=== PATIENT | female | born 1940 | race Caucasian/White ===

== ENCOUNTER → 2019-12-18 | Outpatient (CLI) | payer MEDICARE | END | disposition home or self-care (01) | LOC: LABWHC1 14:50 | PROVIDERS: ATTEND Ophthalmology | DX: Z20.828 Contact with and (suspected) exposure to other viral communicable diseases (principal) | CPT/HCPCS: U0003; C9803 ==

== ENCOUNTER → 2020-01-01 | Outpatient (CLI) | payer MEDICARE | END | disposition home or self-care (01) | LOC: LABWHC1 16:10 | PROVIDERS: ATTEND Ophthalmology | DX: Z20.828 Contact with and (suspected) exposure to other viral communicable diseases (principal) | CPT/HCPCS: U0003; C9803 ==

== ENCOUNTER → 2022-10-18 | Outpatient (CLI) | payer MEDICARE ==
[2022-10-18 13:56] LABS: Prothrombin Time 10.3 sec (9.0-12.0)
[2022-10-18 13:57] LABS: Appearance,Urine Clear (Clear); Bilirubin,Urine Negative (Negative); Blood,Urine Negative (Negative); Color,Urine Light Yellow; Glucose,Urine (UA) Negative (Negative); Ketones,Urine Negative (Negative); Leukocyte Esterase,Urine Negative (Negative); Nitrite,Urine Negative (Negative); Protein,Urine Negative (Negative); Specific Gravity,Urine 1.006 (1.001-1.035); Urobilinogen,Urine <2.0 mg/dL (<2.0)
[2022-10-18 14:07] LABS: Partial Thromboplastin Time 21.7 sec (22.0-30.0)
[2022-10-19 02:14] LABS: HCT 41.7 % (37.2-46.3); HGB 13.5 d/dL (12.0-15.0); MCH 31.3 pg (27.0-32.0); MCHC 32.4 d/dL (32.0-37.0); MCV 96.5 FL (80.0-97.0); Mean Platelet Volume 10.9 FL (9.5-12.2); NRBC Per 100 WBC 0 X 10*3/uL (0.00-0.01); Platelet Count 211 X 10*3/uL (140-440); RBC 4.32 X 10*6/uL (4.10-5.20); RDW 12.5 % (11.5-14.5); WBC 6.24 X 10*3/uL (4.50-10.00)
[2022-10-19 02:51] LABS: ALT 14 U/L (8-44); AST 23 U/L (13-35); Albumin 4.4 d/dL (3.8-4.9); Albumin/Globulin Ratio 1.76 Ratio (1.60-3.17); Alkaline Phosphatase 88 U/L (41-126); BUN/Creat Ratio 22.11 Ratio (12.00-20.00); Blood Urea Nitrogen 19.9 mg/dL (9.0-27.0); Calcium 10.2 mg/dL (8.7-10.3); Carbon Dioxide 23.6 mmol/L (21.6-31.8); Chloride 104 mmol/L (96-109); Globulin 2.5 d/dL (1.6-3.3); Glucose 98 mg/dL (70-110); Potassium 4.4 mmol/L (3.5-5.5); Sodium 140 mmol/L (135-145); Total Bilirubin 0.4 mg/dL (0.3-1.2); Total Protein 6.9 d/dL (6.2-8.2)
== END | disposition home or self-care (01) ==
LOC: LABPAT 11:30
PROVIDERS: ATTEND Orthopaedic Surgery
DX: Z01.818 Encounter for other preprocedural examination (principal); I51.0 Cardiac septal defect, acquired; M19.011 Primary osteoarthritis, right shoulder; R94.31 Abnormal electrocardiogram [ECG] [EKG]
CPT/HCPCS: 80053; 81003; 85027; 85610; 85730; 87070; 93005

== ENCOUNTER 2022-11-14 11:39 | Inpatient (IN) | payer MEDICARE ==
[2022-11-13 08:55] VITALS: BMI 24.3
[~2022-11-14 11:39] MED LIST: ACETAMINOPHEN TAB 500 MG TAB PO PRN; GABAPENTIN 300 MG CAP PO PRN; MELOXICAM 7.5 MG TAB PO PRN; TRANEXAMIC 1,000 MG/100ML-NACL 1,000 MG in SALINE 1 100ML.BAG IVPB PRN
[2022-11-14] MEDS ORDERED: fentaNYL (PF) 50 MCG/ML 2 ML AMP IV PRN (12:00)
[2022-11-14] MEDS ORDERED: ONDANSETRON 4 MG/2 ML VIAL IVP ONE (12:00)
[2022-11-14] MEDS ORDERED: HYDROmorphone 0.5 MG/0.5 ML SYRINGE IVP PRN ×3 (12:00→12:51)
[2022-11-14] MEDS ORDERED: LACTATED RINGERS 1,000 ML IV SCH (12:00)
[2022-11-14] MEDS ORDERED: ONDANSETRON 4 MG/2 ML VIAL ONE (12:05)
[2022-11-14] MEDS ORDERED: HYDROcodone/APAP 5-325MG 1 EACH TAB PO PRN ×2 (12:51)
[2022-11-14] MEDS ORDERED: SENNOSIDES-DOCUSATE SODIUM 1 EACH TAB PO PRN (12:51)
[2022-11-14] MEDS ORDERED: MIDAZOLAM 2 MG/2 ML VIAL IVP ONE (13:04)
[2022-11-14] MEDS ORDERED: DEXAMETHASONE SOD PHOSPHATE 4 MG/ML 1 ML VIAL IVP ONE (13:05)
[2022-11-14] MEDS ORDERED: MIDAZOLAM 2 MG/2 ML VIAL ONE (13:17)
[2022-11-14] MEDS ORDERED: PHENYLEPHRINE-0.9% NACL SYG 1,000 MCG/10 ML SYRINGE ONE (13:17)
[2022-11-14] MEDS ORDERED: ePHEDrine 50 MG/ML 1 ML VIAL ONE (13:17)
[2022-11-14] MEDS ORDERED: TRANEXAMIC 1,000 MG/100ML-NACL PREMIX BAG ONE (13:17)
[2022-11-14] MEDS ORDERED: fentaNYL (PF) 50 MCG/ML 2 ML AMP ONE (13:17)
[2022-11-14] MEDS ORDERED: PROPOFOL 10 MG/ML 20 ML VIAL IV ONE (13:17)
[2022-11-14] MEDS ORDERED: LIDOCAINE 2% INJ 20 MG/ML (2 ML VIAL) ONE (13:17)
[2022-11-14] MEDS ORDERED: ROCURONIUM 10 MG/ML (5 ML VIAL) IV ONE (13:17)
[2022-11-14] MEDS ORDERED: ROPIVACAINE 5 MG/ML 30 ML VIAL ONE (13:17)
[2022-11-14] MEDS ORDERED: ceFAZolin 1,000 MG in SODIUM CHLORIDE 0.9% 1,000 ML IRRIGATION ONE (13:17)
--- NOTE | 2022-11-14 13:19 | P.ANPRN ---
Procedure Note - Anesthesia - Nerve Block Performed Right Interscalene Time Out Performed: Yes (13:04) Date of Procedure: 11/14/22 Procedure Start Time: : Procedure Stop Time: : Location of Patient: PreOp Indication: Acute Post-Operative Pain, Requested by Surgeon (DR Lj Kearns) Sedation Type: Sedate with meaningful contact maintained Preparation: Sterile Prep Position: Supine Catheter: None Needle Types: Pajunk Needle Gauge: 21 Ultrasound used to visualize needle placement: Yes Ultrasound used to observe medication spread: Yes Injectate: 0.5% Ropivacaine (see comment for volume) (20cc) Blood Aspirated: No Pain Paresthesia on Injection Noted: No Resistance on Injection: Normal Image Stored and Saved: Yes Events: Uneventful and Well Tolerated
--- NOTE | 2022-11-14 14:30 | P.OP ---
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 Biomet comprehensive reverse shoulder system, humeral bearing, 36 mm, standard Biomet comprehensive reverse shoulder system, mini humeral tray, 40 mm, +0, standard Biomet comprehensive reverse shoulder, Glenosphere mini baseplate, 25 mm Biomet comprehensive reverse shoulder, central screw, 6.5 mm x 25 mm Biomet comprehensive reverse shoulder, fixed locking screw, 4.75 x 20 mm, 15 mm, 15 mm, 20 mm. Biomet comprehensive reverse shoulder glenosphere, 36 mm, standard All components were press-fit. Articulation is metal on polyethylene.Articulation is metal on polyethylene. Anesthesia: MELLY Surgeon: Lj Kearns Television [employer] Teacher #1: Ingrid Chapman Estimated Blood Loss (ml): 50 Pathology: none sent Condition: stable Disposition: PACU Indications for Procedure: This is a patient that presented to my office with severe pain in the shoulder. X-rays demonstrated severe osteoarthritis of the glenohumeral joint of her shoulder. After failure of conservative treatment, we discussed the surgical and nonsurgical treatment options at length. The patient wishes to proceed with a reverse total shoulder arthroplasty. Patient is aware of the complications of the procedure which include but are not limited to infection, hardware failure, persistent pain, dislocation, and nerve injury. Informed consent was obtained. Operative Findings: The operative findings are consistent with severe osteoarthritis of the right glenohumeral joint with rotator cuff insufficiency Description of Procedure: The patient was seen in the preoperative area, consent was reviewed, and operative site was marked with a skin marker. Patient was then brought to the operating room and given preoperative antibiotics intravenously. Patient was also given 1 g of Tranexamic acid intravenously. A general anesthetic was administered by the anesthesia department. A Lazo catheter was placed by the nursing staff. The patient was then placed in a beachchair position with the bony prominences well-padded and the head secured. The shoulder was then prepped and draped in the usual sterile fashion. A universal timeout was then performed, which confirmed the patient's name, surgical site, ALLERGIES, and consent. A standard deltopectoral approach was performed. The skin and subcutaneous tissue was sharply dissected down to the deltoid fascia. The cephalic vein was then identified and retracted medially. The deltopectoral interval was then utilized to expose the subscapularis tendon. A retractor was then placed under the coracobrachialis tendon retracted medially, and the deltoid. The axillary nerve is palpated and protected throughout the procedure. The subscapularis tendon was then released and retracted medially. The humeral head was then exposed easily. The rotator cuff tendon was found to be completely torn and retracted. After the humeral head was exposed, osteophytes were removed with a Ronguer. Next the humeral stem was prepared. A starter reamer was then placed through the humeral head along the axis of the humeral shaft just lateral to the articular surface and just medial to the rotator cuff attachment. Sequential reaming was performed to the appropriate size reamer was inserted to the #between the 3 and 4 on the reamer. Next the intramedullary resection guide was placed on the reamer shaft. It was placed to the appropriate resection depth and angle of 30 of retroversion. Resection guide block was then secured with Steinmann pins. The proximal humerus was then resected. The block was then removed and the humerus was then broached sequentially to the same size as the reamer. After the broaches fully seated, the broach handle was removed and a broach cover was placed protect the humerus while the glenoid was prepared. Next attention was directed to the glenoid. The appropriate retractors were placed around the glenoid and any remaining soft tissues was removed from around the glenoid. After the glenoid was adequately exposed, the threaded glenoid guide was placed onto the glenoid and a 3.2 mm Steinmann pin was inserted in the glenoid at the desired angle and position, ensuring the pin engaged medial cortical wall. Next, the cannulated baseplate reamer was placed over the top of the Steinmann pin. The glenoid was then reamed to the appropriate depth. The glenoid reamer was then removed, leaving the Steinmann pin. The glenoid Yannick plate implant was placed on the end of the cannulated baseplate impactor. The baseplate was then impacted fully into the glenoid. Next the 6.5 mm central screw was then placed which afforded excellent fixation. The 4 peripheral locking screws were then drilled measured and placed. Next the appropriate glenosphere was opened and impacted into the glenoid baseplate. Attention was then redirected to the humerus. Next a trial humeral tray was placed in the shoulder was reduced. Shoulder was taken through a full range of motion and found to be stable. The shoulder was then gently dislocated, and the trial humerus and humeral tray were removed. The final humeral stem was impacted in the final humeral tray was impacted as well. Shoulder was then relocated. Again the shoulder was taken through a range of motion and found to have no instability. Shoulder was then irrigated with pulsatile lavage. The shoulder was then irrigated with Irrisept solution. A second dose of 1 g of Tranexamic acid was given. The subscapularis was then repaired with #1 Vicryl. The deltopectoral interval was then closed with #1 Vicryl as well. The subcutaneous tissues were closed with 2-0 Vicryl then Dermabond was placed on the skin. A sterile dressing was then applied, the patient was transported to the recovery room in an arm sling in stable condition. The assistant professor of archaeology SUMMER Velázquez was required due the complexity of surgery and the need for a skilled bilingual teacher assistant.
--- NOTE | 2022-11-14 19:42 | XR ---
EXAMINATION TYPE: XR shoulder limited RT DATE OF EXAM: 11/14/2022 COMPARISON: NONE HISTORY: 82-year-old female postoperative evaluation TECHNIQUE: Single AP view FINDINGS: Images show placement of reverse right shoulder arthroplasty. Alignment appears appropriate . Soft tissue air related to recent operation. Both glenoid and humeral stem components of the prosth esis appear well seated without periprosthetic fracture seen. IMPRESSION: Uncomplicated postoperative appearance of the reverse right total shoulder arthroplasty.
--- NOTE | 2022-11-14 22:05 | P.CONS ---
History of Present Illness - Reason for Consult Consult date: 11/14/22 Medical management Requesting physician: Lj Kearns - Chief Complaint Right shoulder surgery - History of Present Illness Pleasant 82-year-old patient who follows with Dr. Schwarz. Chronic stable medical conditions include atrial fibrillation, hard of hearing, osteomyelitis, seizure disorder, urinary incontinence. 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 Postprocedure no pain in the right shoulder right arm is numb. No nausea vomiting. Patient some family members at the bedside. No chest pain no shortness of breath. Review of systems: GEN.: None EYES: None HEENT: Decreased hearing NECK: None RESPIRATORY: None CARDIOVASCULAR: None GASTROINTESTINAL: None GENITOURINARY: None MUSCULOSKELETAL: Joint pains LYMPHATICS: None HEMATOLOGICAL: None PSYCHIATRY: None NEUROLOGICAL: None Past medical history to include: Atrial flutter ablation, hard of hearing, osteomyelitis, urinary incontinence, wears a pad, seizure disorder Social history: Nonsmoker. Alcohol rarely. Lives alone. Physical examination: VITAL SIGNS: 98, 62, 17, 123/60, 96% room air GENERAL: BMI 24.7, declining in bed, right arm in a sling. EYES: Pupils equal. Conjunctiva normal. HEENT: External appearance of nose and ears normal, oral cavity grossly normal. Decreased hearing NECK: JVD not raised; masses not palpable. HEART: First and second heart sounds are normal; no edema. LUNGS: Respiratory rate normal; clear to auscultation. ABDOMEN: Soft, nontender, liver spleen not palpable, no masses palpable. PSYCH: Alert and oriented x3; mood and affect normal. MUSCULOSKELETAL:No Clubbing/cyanosis;muscles-grossly intact. Right dominant a sling. Decreased sensation in the hand. Warm. OA NEUROLOGICAL: Cranial nerves grossly intact; no facial asymmetry, power and sensation grossly intact. LYMPHATICS: No lymph nodes palpable in the axilla and neck INVESTIGATIONS, reviewed in the clinical context: White count 6.2 hemoglobin 13.5 platelets 211 sodium 142 potassium 4.4 BUN 19.9 creatinine 0.9 Assessment and plan: -Severe osteoarthritis of the right glenohumeral joint with rotator cuff insufficiency. Reverse total shoulder arthroplasty done. Right arm in a sling. Currently no pain -Paroxysmal atrial fibrillation Eliquis to be resumed when okay with orthopedics. -Hard of hearing, patient says hearing aids -Primary osteoarthritis Pain medications as needed Care was discussed with the patient. Questions answered. Thank you Dr. Kearns Past Medical History Past Medical History: Atrial Fibrillation, Hearing Disorder / Deafness, Osteoarthritis (OA), Seizure Disorder Additional Past Medical History / Comment(s): Urinary incontinence, wears a pad. Bilateral hearing aid use. 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 States had seizures after both hip replacements which were 2 yrs apart, last surgery 2 yrs ago, no seizures since then and none in between hip replacements. History of Any Multi-Drug Resistant Organisms: None Reported Past Surgical History: Cholecystectomy, Hysterectomy, Joint Replacement, Orthopedic Surgery Additional Past Surgical History / Comment(s): "Fallen kidney surgery", bilateral hip replacements, bowel and bladder lift, cataract surgery, right knee meniscus repair. Past Anesthesia/Blood Transfusion Reactions: Postoperative Nausea & Vomiting (PONV) Additional Past Anesthesia/Blood Transfusion Reaction / Comm: Hx seizures after both hip replacements which started in the Recovery Room with both. Smoking Status: Never smoker - Past Family History Mother Family Medical History: Cancer Sister(s) Family Medical History: Deep Vein Thrombosis (DVT) Medications and Allergies Home Medications Medication Instructions Recorded Confirmed Type Amoxicillin (Unknown Dose) 1 tab PO DIRECTED PRN 11/13/22 11/14/22 History Apixaban [Eliquis] 5 mg PO BID 11/13/22 11/14/22 History Ascorbic Acid [Vitamin C] 1,000 mg PO DAILY 11/13/22 11/14/22 History Aspirin [Adult Low Dose Aspirin EC] 81 mg PO DAILY 11/13/22 11/14/22 History Calcium Carbonate [Calcium] 600 mg PO DAILY 11/13/22 11/14/22 History Castillo Pill 1 tab PO DAILY 11/13/22 11/14/22 History Cholecalciferol [Vitamin D3 (125 125 mcg PO DAILY 11/13/22 11/14/22 History Mcg = 5000 Iu)] Fesoterodine Fumarate 4 mg PO QAM 11/13/22 11/14/22 History [Fesoterodine Fumarate ER] Ibuprofen [Motrin] 400 mg PO DAILY 11/13/22 11/14/22 History Ibuprofen [Motrin] 600 mg PO DAILY 11/13/22 11/14/22 History Ibuprofen [Motrin] 800 mg PO BID 11/13/22 11/14/22 History Multivitamins, Thera [Multivitamin 1 tab PO DAILY 11/13/22 11/14/22 History (formulary)] [place]-3/Dha/Epa/Fish Oil [Fish Oil 1 each PO DAILY 11/13/22 11/14/22 History 1,000 mg Softgel] Turmeric Root Extract [Turmeric] 450 mg PO DAILY 11/13/22 11/14/22 History HYDROcodone/APAP 5-325MG [[place] 1 tab PO Q6HR PRN #30 tab 11/14/22 Rx 5-325] Sennosides [Senokot] 2 tab PO DAILY PRN #60 tablet 11/14/22 Rx Allergies Allergy/AdvReac Type Severity Reaction Status Date / Time codeine Allergy Nausea & Verified 11/14/22 12:35 Vomiting tramadol Allergy Nausea Verified 11/14/22 12:02 Cold Medicines Allergy Rash/Hives Uncoded 11/14/22 12:02 Physical Exam Vitals: Vital Signs Temp Pulse Resp BP Pulse Ox 11/14/22 20:00 98 F 62 17 123/60 96 11/14/22 17:27 96.7 F L 65 17 111/53 93 L 11/14/22 17:00 54 L 16 119/56 98 11/14/22 16:00 51 L 16 109/55 97 11/14/22 15:15 52 L 16 121/56 97 11/14/22 15:00 64 16 114/56 93 L 11/14/22 14:45 97.2 F L 73 16 112/52 92 L 11/14/22 13:14 62 18 135/64 96 11/14/22 12:32 98.9 F 61 18 131/61 96 Intake and Output 11/14/22 11/14/22 11/14/22 06:59 14:59 22:59 Intake Total 1051 Output Total 50 Balance 1001 Intake: IV 1051 Output: Estimated Blood Loss 50 Other: # Voids 1 Weight 71.4 kg 71.4 kg
[2022-11-15] MEDS: HYDROmorphone 0.5 MG/0.5 ML SYRINGE IVP PRN ×7 (01:30→21:37)
[2022-11-15] MEDS: ONDANSETRON 4 MG/2 ML VIAL IVP PRN ×3 (01:39→17:28)
[2022-11-15] MEDS ORDERED: LORazepam 2 MG/ML INJ IV PRN (02:10)
[2022-11-15] MEDS ORDERED: diazePAM 2 MG TAB PO STA (03:41)
[2022-11-15] MEDS: METOCLOPRAMIDE 5 MG/ML 2 ML VIAL IVP PRN ×3 (07:38→21:37)
[2022-11-15 08:10] LABS: Basophils % (A) 0 %; Eosinophils # (A) 0.1 k/uL (0-0.7); Eosinophils % (A) 1 %; HCT 33.5 % (34.0-46.0); HGB 11.1 gm/dL (11.4-16.0); Lymphocytes % (A) 12 %; MCH 31.8 pg (25.0-35.0); MCHC 33.2 g/dL (31.0-37.0); MCV 95.7 fL (80.0-100.0); Monocytes # (A) 0.4 k/uL (0-1.0); Monocytes % (A) 5 %; Neutrophils # (A) 6.7 k/uL (1.3-7.7); Neutrophils % (A) 81 %; Platelet Count 176 k/uL (150-450); RDW 12.4 % (11.5-15.5); WBC 8.3 k/uL (3.8-10.6)
[2022-11-15] MEDS: MULTIVITAMINS, THERA 1 EACH TAB PO SCH (08:28)
[2022-11-15] MEDS: ASCORBIC ACID 500 MG TAB PO SCH (08:28)
[2022-11-15] MEDS: NON FORMULARY DRUG (Omega-3/Dha/Epa/Fish Oil [Fish Oil 1,000 Mg Softgel] 1 EACH Capsule) PO SCH (08:28)
[2022-11-15] MEDS: TROSPIUM CHLORIDE 20 MG TABLET PO SCH (08:28)
[2022-11-15] MEDS: ASPIRIN 81 MG PO SCH (08:28)
--- NOTE | 2022-11-15 09:25 | P.PN ---
Subjective Progress Note Date: 11/15/22 This is a 82-year-old female who is status post right reverse total shoulder arthroplasty. This is postoperative day #1 and patient is seen and evaluated at bedside with Dr. Lj Kearns. Patient states that she has been nauseous and had a seizure last night. Patient states that she has a history of postoperative seizures. Objective - Vital Signs Vital signs: Vital Signs Temp 97.6 F 11/15/22 02:00 Pulse 70 11/15/22 02:10 Resp 17 11/14/22 20:00 BP 150/77 11/15/22 02:10 Pulse Ox 97 11/15/22 02:00 FiO2 Intake & Output 11/14/22 11/15/22 11/15/22 18:59 06:59 18:59 Intake Total 1051 Output Total 50 Balance 1001 Weight 71.4 kg Intake: IV 1051 Output: Estimated Blood Loss 50 Other: # Voids 1 - Exam Vital signs are stable. Patient is in no acute distress and is alert and or iented 3. Dressing is clean, dry, and intact. Patient has full motion of the right wrist and hand. Sensation intact. Neurovascular status and circulatory status are intact. - Labs CBC & Chem 7: 11/15/22 07:34 Labs: Abnormal Lab Results - Last 24 Hours (Table) 11/15/22 Range/Units 07:34 RBC 3.50 L (3.80-5.40) m/uL Hgb 11.1 L (11.4-16.0) gm/dL Hct 33.5 L (34.0-46.0) % Assessment and Plan (1) S/p reverse total shoulder arthroplasty Current Visit: Yes Status: Acute Code(s): Z96.619 - PRESENCE OF UNSPECIFIED ARTIFICIAL SHOULDER JOINT SNOMED Code(s): 580541110 (2) Osteoarthritis of right shoulder Current Visit: Yes Status: Acute Code(s): M19.011 - PRIMARY OSTEOARTHRITIS, RIGHT SHOULDER SNOMED Code(s): 114984657989750 Plan: 1. Maintain arm sling for comfort. 2. Continue routine postoperative care and pain control. 3. Appreciate input from internal medicine. 4. Patient is awaiting rehab placement.
--- NOTE | 2022-11-15 17:51 | P.PN ---
Progress Note - Text Progress Note Date: 11/15/22 - Chief Complaint Right shoulder surgery - History of Present Illness Pleasant 82-year-old patient who follows with Dr. Schwarz. Chronic stable medical conditions include atrial fibrillation, hard of hearing, osteomyelitis, seizure disorder, urinary incontinence. 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 Postprocedure no pain in the right shoulder right arm is numb. No nausea vomiting. Patient some family members at the bedside. No chest pain no shortness of breath. November 15: Patient laying in bed. Family the bedside. Had significant pain and nausea. A little amount. No chest pain or shortness of breath. Active Medications Hydrocodone Bitart/Acetaminophen (Hydrocodone/Apap 7.5-325mg 1 Each Tab) 1 each PO Q6H PRN PRN Reason: Pain Scale 1 to 5 Hydrocodone Bitart/Acetaminophen (Hydrocodone/Apap 7.5-325mg 1 Each Tab) 2 each PO Q6H PRN PRN Reason: Pain Scale 6 to 10 Apixaban (Apixaban 5 Mg Tab) 5 mg PO BID [facility]; Protocol Ascorbic Acid (Ascorbic Acid 500 Mg Tab) 1,000 mg PO DAILY [facility] Last Admin: 11/15/22 08:28 Dose: Not Given Aspirin (Aspirin 81 Mg) 81 mg PO DAILY [facility] Last Admin: 11/15/22 08:28 Dose: Not Given Hydromorphone HCl (Hydromorphone 0.5 Mg/0.5 Ml Syringe) 0.5 mg IVP Q3HR PRN PRN Reason: Pain Scale 7 to 10 Stop: 12/14/22 12:52 Last Admin: 11/15/22 17:29 Dose: 0.5 mg Hydromorphone HCl (Hydromorphone 0.5 Mg/0.5 Ml Syringe) 0.125 mg IVP Q3HR PRN PRN Reason: Pain Scale 1 to 3 Stop: 12/14/22 12:52 Hydromorphone HCl (Hydromorphone 0.5 Mg/0.5 Ml Syringe) 0.25 mg IVP Q3HR PRN PRN Reason: Pain Scale 4 to 6 Stop: 12/14/22 12:52 Lorazepam (Lorazepam 2 Mg/Ml Inj) 0.5 mg IV Q4HR PRN PRN Reason: Seizures Metoclopramide HCl (Metoclopramide 5 Mg/Ml 2 Ml Vial) 5 mg IVP Q6HR PRN PRN Reason: Nausea And Vomiting Last Admin: 11/15/22 14:53 Dose: 5 mg Multivitamins (Multivitamins, Thera 1 Each Tab) 1 each PO DAILY [facility] Last Admin: 11/15/22 08:28 Dose: Not Given Non-Formulary Medication ([place]-3/Dha/Epa/Fish Oil [Fish Oil 1,000 Mg Softgel]) 1 each PO DAILY [facility] Last Admin: 11/15/22 08:28 Dose: Not Given Ondansetron HCl (Ondansetron 4 Mg/2 Ml Vial) 4 mg IVP Q8H PRN PRN Reason: Nausea And Vomiting Stop: 12/14/22 12:52 Last Admin: 11/15/22 17:28 Dose: 4 mg Senna/Docusate Sodium (Sennosides-Docusate Sodium 1 Each Tab) 2 each PO HS PRN PRN Reason: Constipation Stop: 12/14/22 12:52 Trospium (Trospium Chloride 20 Mg Tablet) 20 mg PO QAM [facility] Last Admin: 11/15/22 08:28 Dose: Not Given Past medical history to include: Atrial flutter ablation, hard of hearing, osteomyelitis, urinary incontinence, wears a pad, seizure disorder Social history: Nonsmoker. Alcohol rarely. Lives alone. Physical examination: VITAL SIGNS: 98.7, 65, 19, 121/56, 91% room air GENERAL: Laying in bed, right arm in a sling EYES: Pupils equal. Conjunctiva normal. HEENT: External appearance of nose and ears normal, oral cavity grossly normal. Decreased hearing NECK: JVD not raised; masses not palpable. HEART: First and second heart sounds are normal; no edema. LUNGS: Respiratory rate normal; clear to auscultation. ABDOMEN: Soft, nontender, liver spleen not palpable, no masses palpable. PSYCH: Alert and oriented x3; mood and affect normal. MUSCULOSKELETAL:No Clubbing/cyanosis;muscles-grossly intact. Right arm a sling. Warm. OA INVESTIGATIONS, reviewed in the clinical context: November 15: White count 8.3 hemoglobin 11.1 platelets 176 White count 6.2 hemoglobin 13.5 platelets 211 sodium 142 potassium 4.4 BUN 19.9 creatinine 0.9 Assessment and plan: -Severe osteoarthritis of the right glenohumeral joint with rotator cuff insufficiency. Reverse total shoulder arthroplasty done. Right arm in a sling. Currently in some pain -Paroxysmal atrial fibrillation Eliquis -Hard of hearing, patient says hearing aids -Primary osteoarthritis Pain medications as needed Care was discussed with the patient. Questions answered. Discussed with patient family at the bedside. Pain medications per orthopedics. Up in a chair as tolerated. Thank you Past Medical History Past Medical History: Atrial Fibrillation, Hearing Disorder / Deafness, Osteoarthritis (OA), Seizure Disorder Additional Past Medical History / Comment(s): Urinary incontinence, wears a pad. Bilateral hearing aid use. 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 States had seizures after both hip replacements which were 2 yrs apart, last surgery 2 yrs ago, no seizures since then and none in between hip replacements. History of Any Multi-Drug Resistant Organisms: None Reported Past Surgical History: Cholecystectomy, Hysterectomy, Joint Replacement, Orthopedic Surgery Additional Past Surgical History / Comment(s): "Fallen kidney surgery", bilateral hip replacements, bowel and bladder lift, cataract surgery, right knee meniscus repair. Past Anesthesia/Blood Transfusion Reactions: Postoperative Nausea & Vomiting (PONV) Additional Past Anesthesia/Blood Transfusion Reaction / Comm: Hx seizures after both hip replacements which started in the Recovery Room with both. Smoking Status: Never smoker - Past Family History Mother Family Medical History: Cancer Sister(s) Family Medical History: Deep Vein Thrombosis (DVT) Medications and Allergies Home Medications Medication Instructions Recorded Confirmed Type Amoxicillin (Unknown Dose) 1 tab PO DIRECTED PRN 11/13/22 11/14/22 History Apixaban [Eliquis] 5 mg PO BID 11/13/22 11/14/22 History Ascorbic Acid [Vitamin C] 1,000 mg PO DAILY 11/13/22 11/14/22 History Aspirin [Adult Low Dose Aspirin EC] 81 mg PO DAILY 11/13/22 11/14/22 History Calcium Carbonate [Calcium] 600 mg PO DAILY 11/13/22 11/14/22 History Castillo Pill 1 tab PO DAILY 11/13/22 11/14/22 History Cholecalciferol [Vitamin D3 (125 125 mcg PO DAILY 11/13/22 11/14/22 History Mcg = 5000 Iu)] Fesoterodine Fumarate 4 mg PO QAM 11/13/22 11/14/22 History [Fesoterodine Fumarate ER] Ibuprofen [Motrin] 400 mg PO DAILY 11/13/22 11/14/22 History Ibuprofen [Motrin] 600 mg PO DAILY 11/13/22 11/14/22 History Ibuprofen [Motrin] 800 mg PO BID 11/13/22 11/14/22 History Multivitamins, Thera [Multivitamin 1 tab PO DAILY 11/13/22 11/14/22 History (formulary)] [place]-3/Dha/Epa/Fish Oil [Fish Oil 1 each PO DAILY 11/13/22 11/14/22 History 1,000 mg Softgel] Turmeric Root Extract [Turmeric] 450 mg PO DAILY 11/13/22 11/14/22 History HYDROcodone/APAP 5-325MG [[place] 1 tab PO Q6HR PRN #30 tab 11/14/22 Rx 5-325] Sennosides [Senokot] 2 tab PO DAILY PRN #60 tablet 11/14/22 Rx Allergies Allergy/AdvReac Type Severity Reaction Status Date / Time codeine Allergy Nausea & Verified 11/14/22 12:35 Vomiting tramadol Allergy Nausea Verified 11/14/22 12:02 Cold Medicines Allergy Rash/Hives Uncoded 11/14/22 12:02
[2022-11-15] MEDS ORDERED: ACETAMINOPHEN TAB 500 MG TAB PO PRN (21:13)
[2022-11-15] MEDS: APIXABAN 5 MG TAB PO SCH (22:10)
--- NOTE | 2022-11-15 22:12 | XR ---
EXAMINATION TYPE: XR chest 1V DATE OF EXAM: 11/15/2022 COMPARISON: 03/12/2012 INDICATION: Febrile TECHNIQUE: Single frontal view of the chest is obtained. FINDINGS: The heart size is mildly prominent. The pulmonary vasculature is upper limits for normal. No focal consolidation is evident. Some mild subsegmental atelectasis may be at the right base. Devel oping pneumonia could be considered Postsurgical changes from a right shoulder prosthesis are evident . IMPRESSION: 1. Correlate for volume overload. Some mild subsegmental atelectasis may be present at the right lung base. Correlate for pneumonia.
[2022-11-15] MEDS ORDERED: VANCOMYCIN IV PER PHARMACY 1 EACH MISC MISCELLANE PRN (22:13)
[2022-11-15] MEDS: HYDROcodone/APAP 7.5-325MG 1 EACH TAB PO PRN (23:54)
[2022-11-16] MEDS ORDERED: VANCOMYCIN 1,250 MG in SODIUM CHLORIDE 0.9% 250 ML IVPB ONE ×2
[2022-11-16] MEDS: HYDROmorphone 0.5 MG/0.5 ML SYRINGE IVP PRN (03:28)
[2022-11-16] MEDS: APIXABAN 5 MG TAB PO SCH ×2 (07:56→20:17)
[2022-11-16] MEDS: ASPIRIN 81 MG PO SCH (07:58)
[2022-11-16] MEDS: HYDROcodone/APAP 7.5-325MG 1 EACH TAB PO PRN ×4 (07:58→19:50)
[2022-11-16] MEDS: ASCORBIC ACID 500 MG TAB PO SCH (07:58)
[2022-11-16] MEDS: MULTIVITAMINS, THERA 1 EACH TAB PO SCH (07:58)
[2022-11-16] MEDS: METOCLOPRAMIDE 5 MG/ML 2 ML VIAL IVP PRN (08:02)
[2022-11-16] MEDS: TROSPIUM CHLORIDE 20 MG TABLET PO SCH (08:02)
[2022-11-16] MEDS: NON FORMULARY DRUG (Omega-3/Dha/Epa/Fish Oil [Fish Oil 1,000 Mg Softgel] 1 EACH Capsule) PO SCH (08:09)
[2022-11-16 10:52] LABS: African American GFR (CKD) >90 (>60 ml/min/1.73 sqM); Non-African American GFR(CKD) 84 (>60 ml/min/1.73 sqM)
[2022-11-16 10:57] LABS: HCT 37.8 % (37.2-46.3); HGB 11.7 d/dL (12.0-15.0); MCV 100.3 FL (80.0-97.0); Mean Platelet Volume 10.7 FL (9.5-12.2); NRBC Per 100 WBC 0 X 10*3/uL (0.00-0.01); Platelet Count 160 X 10*3/uL (140-440); RBC 3.77 X 10*6/uL (4.10-5.20); RDW 12.3 % (11.5-14.5); WBC 7.84 X 10*3/uL (4.50-10.00)
[2022-11-16] MEDS: VANCOMYCIN 1,250 MG in SODIUM CHLORIDE 0.9% 250 ML IVPB SCH (13:28)
--- NOTE | 2022-11-16 13:43 | P.PN ---
Progress Note - Text Progress Note Date: 11/16/22 - Chief Complaint Right shoulder surgery - History of Present Illness Pleasant 82-year-old patient who follows with Dr. Schwarz. Chronic stable medical conditions include atrial fibrillation, hard of hearing, osteomyelitis, seizure disorder, urinary incontinence. 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 Postprocedure no pain in the right shoulder right arm is numb. No nausea vomiting. Patient some family members at the bedside. No chest pain no shortness of breath. November 15: Patient laying in bed. Family the bedside. Had significant pain and nausea. A little amount. No chest pain or shortness of breath. November 16: Overnight patient started spiking fevers. I ordered urine and culture, chest x-ray blood cultures. Empirically was started on vancomycin overnight. In view of postsurgical. Patient this morning has a congested cough. Not able to bring up any sputum. Tired. Decreased appetite. Questionable infiltrate on x-ray. IV ceftriaxone and being added. Active Medications Acetaminophen (Acetaminophen Tab 500 Mg Tab) 500 mg PO Q6HR PRN PRN Reason: Fever and/ or Pain Last Admin: 11/15/22 21:24 Dose: 500 mg Hydrocodone Bitart/Acetaminophen (Hydrocodone/Apap 7.5-325mg 1 Each Tab) 1 each PO Q6H PRN PRN Reason: Pain Scale 1 to 5 Hydrocodone Bitart/Acetaminophen (Hydrocodone/Apap 7.5-325mg 1 Each Tab) 2 each PO Q6H PRN PRN Reason: Pain Scale 6 to 10 Last Admin: 11/16/22 13:33 Dose: 2 each Apixaban (Apixaban 5 Mg Tab) 5 mg PO BID [facility]; Protocol Last Admin: 11/16/22 07:56 Dose: 5 mg Ascorbic Acid (Ascorbic Acid 500 Mg Tab) 1,000 mg PO DAILY [facility] Last Admin: 11/16/22 07:58 Dose: 1,000 mg Aspirin (Aspirin 81 Mg) 81 mg PO DAILY [facility] Last Admin: 11/16/22 07:58 Dose: 81 mg Hydromorphone HCl (Hydromorphone 0.5 Mg/0.5 Ml Syringe) 0.5 mg IVP Q3HR PRN PRN Reason: Pain Scale 7 to 10 Stop: 12/14/22 12:52 Last Admin: 11/16/22 03:28 Dose: 0.5 mg Hydromorphone HCl (Hydromorphone 0.5 Mg/0.5 Ml Syringe) 0.125 mg IVP Q3HR PRN PRN Reason: Pain Scale 1 to 3 Stop: 12/14/22 12:52 Hydromorphone HCl (Hydromorphone 0.5 Mg/0.5 Ml Syringe) 0.25 mg IVP Q3HR PRN PRN Reason: Pain Scale 4 to 6 Stop: 12/14/22 12:52 Vancomycin HCl 1,250 mg/ (Sodium Chloride) 250 mls @ 125 mls/hr IVPB Q12H [facility] Last Admin: 11/16/22 13:28 Dose: 125 mls/hr Ceftriaxone Sodium 1 gm/ (Sodium Chloride) 50 mls @ 100 mls/hr IVPB Q12HR [facility]; Protocol Last Admin: 11/16/22 11:42 Dose: 100 mls/hr Lorazepam (Lorazepam 2 Mg/Ml Inj) 0.5 mg IV Q4HR PRN PRN Reason: Seizures Metoclopramide HCl (Metoclopramide 5 Mg/Ml 2 Ml Vial) 5 mg IVP Q6HR PRN PRN Reason: Nausea And Vomiting Last Admin: 11/16/22 08:02 Dose: 5 mg Miscellaneous Information (Vancomycin Trough Due 1 Each Misc) 0 each MISCELLANE DIRECTED ONE Stop: 11/17/22 11:01 Multivitamins (Multivitamins, Thera 1 Each Tab) 1 each PO DAILY [facility] Last Admin: 11/16/22 07:58 Dose: 1 each Non-Formulary Medication (Wilson-3/Dha/Epa/Fish Oil [Fish Oil 1,000 Mg Softgel]) 1 each PO DAILY [facility] Last Admin: 11/16/22 08:09 Dose: Not Given Ondansetron HCl (Ondansetron 4 Mg/2 Ml Vial) 4 mg IVP Q8H PRN PRN Reason: Nausea And Vomiting Stop: 12/14/22 12:52 Last Admin: 11/15/22 17:28 Dose: 4 mg Senna/Docusate Sodium (Sennosides-Docusate Sodium 1 Each Tab) 2 each PO HS PRN PRN Reason: Constipation Stop: 12/14/22 12:52 Trospium (Trospium Chloride 20 Mg Tablet) 20 mg PO QAM [facility] Last Admin: 11/16/22 08:02 Dose: 10 mg Past medical history to include: Atrial flutter ablation, hard of hearing, osteomyelitis, urinary incontinence, wears a pad, seizure disorder Social history: Nonsmoker. Alcohol rarely. Lives alone. Physical examination: VITAL SIGNS: T-max 102.7, 92, 18, 106/71, 100% on 3 L GENERAL: Laying in bed, right arm in a sling, tired, congested cough EYES: Pupils equal. Conjunctiva normal. HEENT: External appearance of nose and ears normal, oral cavity grossly normal. Decreased hearing NECK: JVD not raised; masses not palpable. HEART: First and second heart sounds are normal; no edema. LUNGS: Respiratory rate increased; some expiratory crackles. ABDOMEN: Soft, nontender, liver spleen not palpable, no masses palpable. PSYCH: Alert and oriented x3; mood and affect tired. MUSCULOSKELETAL:No Clubbing/cyanosis;muscles-grossly intact. Right arm a sling. Warm. OA INVESTIGATIONS, reviewed in the clinical context: November 16: White count 7.8 hemoglobin 11.7 platelets 160 Chest x-ray film personally reviewed by me-possible infiltrate November 15: White count 8.3 hemoglobin 11.1 platelets 176 White count 6.2 hemoglobin 13.5 platelets 211 sodium 142 potassium 4.4 BUN 19.9 creatinine 0.9 Assessment and plan: -New-onset sepsis. Patient has a congested cough and some infiltrate on the chest. IV ceftriaxone added. IV vancomycin given postsurgical. We will check pro calcitonin tomorrow. Discussed with the patient and family the bedside. -Probable pneumonia possible gram-negative organism. IV ceftriaxone. -Severe osteoarthritis of the right glenohumeral joint with rotator cuff insufficiency. Reverse total shoulder arthroplasty done. Right arm in a sling. Currently in some pain -Paroxysmal atrial fibrillation Eliquis -Hard of hearing, patient says hearing aids -Primary osteoarthritis Pain medications as needed Care was discussed with the patient. Questions answered. Urine culture. Blood culture. IV vancomycin and IV ceftriaxone. Discussed. Not ready for discharge currently Thank you Past Medical History Past Medical History: Atrial Fibrillation, Hearing Disorder / Deafness, Osteoarthritis (OA), Seizure Disorder Additional Past Medical History / Comment(s): Urinary incontinence, wears a pad. Bilateral hearing aid use. 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 States had seizures after both hip replacements which were 2 yrs apart, last surgery 2 yrs ago, no seizures since then and none in between hip replacements. History of Any Multi-Drug Resistant Organisms: None Reported Past Surgical History: Cholecystectomy, Hysterectomy, Joint Replacement, Orthopedic Surgery Additional Past Surgical History / Comment(s): "Fallen kidney surgery", bilateral hip replacements, bowel and bladder lift, cataract surgery, right knee meniscus repair. Past Anesthesia/Blood Transfusion Reactions: Postoperative Nausea & Vomiting (PONV) Additional Past Anesthesia/Blood Transfusion Reaction / Comm: Hx seizures after both hip replacements which started in the Recovery Room with both. Smoking Status: Never smoker - Past Family History Mother Family Medical History: Cancer Sister(s) Family Medical History: Deep Vein Thrombosis (DVT) Medications and Allergies Home Medications Medication Instructions Recorded Confirmed Type Amoxicillin (Unknown Dose) 1 tab PO DIRECTED PRN 11/13/22 11/14/22 History Apixaban [Eliquis] 5 mg PO BID 11/13/22 11/14/22 History Ascorbic Acid [Vitamin C] 1,000 mg PO DAILY 11/13/22 11/14/22 History Aspirin [Adult Low Dose Aspirin EC] 81 mg PO DAILY 11/13/22 11/14/22 History Calcium Carbonate [Calcium] 600 mg PO DAILY 11/13/22 11/14/22 History Castillo Pill 1 tab PO DAILY 11/13/22 11/14/22 History Cholecalciferol [Vitamin D3 (125 125 mcg PO DAILY 11/13/22 11/14/22 History Mcg = 5000 Iu)] Fesoterodine Fumarate 4 mg PO QAM 11/13/22 11/14/22 History [Fesoterodine Fumarate ER] Ibuprofen [Motrin] 400 mg PO DAILY 11/13/22 11/14/22 History Ibuprofen [Motrin] 600 mg PO DAILY 11/13/22 11/14/22 History Ibuprofen [Motrin] 800 mg PO BID 11/13/22 11/14/22 History Multivitamins, Thera [Multivitamin 1 tab PO DAILY 11/13/22 11/14/22 History (formulary)] Wilson-3/Dha/Epa/Fish Oil [Fish Oil 1 each PO DAILY 11/13/22 11/14/22 History 1,000 mg Softgel] Turmeric Root Extract [Turmeric] 450 mg PO DAILY 11/13/22 11/14/22 History HYDROcodone/APAP 5-325MG [[place] 1 tab PO Q6HR PRN #30 tab 11/14/22 Rx 5-325] Sennosides [Senokot] 2 tab PO DAILY PRN #60 tablet 11/14/22 Rx Allergies Allergy/AdvReac Type Severity Reaction Status Date / Time codeine Allergy Nausea & Verified 11/14/22 12:35 Vomiting tramadol Allergy Nausea Verified 11/14/22 12:02 Cold Medicines Allergy Rash/Hives Uncoded 11/14/22 12:02
--- NOTE | 2022-11-16 13:57 | P.PN ---
Subjective Progress Note Date: 11/16/22 This is a 82-year-old female who is status post right reverse total shoulder arthroplasty. This is postoperative day #2 and patient is seen and evaluated at bedside today. Patient states that her pain is well controlled and she denies any new complaints today. Patient states that she is hoping for ECF upon discharge. Objective - Vital Signs Vital signs: Vital Signs Temp 99.0 F 11/16/22 07:00 Pulse 92 11/16/22 07:00 Resp 18 11/16/22 07:00 BP 106/71 11/16/22 07:00 Pulse Ox 100 11/16/22 07:00 FiO2 Intake & Output 11/15/22 11/16/22 11/16/22 18:59 06:59 18:59 Intake Total 50 Balance 50 Intake: Intake, IV Titration 50 Amount ceFAZolin 2 gm In Sodium 50 Chloride 0.9% 50 ml @ 100 mls/hr IVPB Q8H [facility] Rx#: [id number] Other: Voiding Method Toilet # Voids 3 1 - Exam Vital signs are stable. Patient is in no acute distress and is alert and oriented 3. Dressing is clean, dry, and intact. Patient has full motion of the right wrist and hand. Sensation intact. Neurovascular status and circulatory status are intact. - Labs CBC & Chem 7: 11/16/22 06:19 11/16/22 10:24 Labs: Abnormal Lab Results - Last 24 Hours (Table) 11/16/22 Range/Units 06:19 RBC 3.77 L (4.10-5.20) X 10*6/uL Hgb 11.7 L (12.0-15.0) d/dL MCV 100.3 H (80.0-97.0) FL MCHC 31.0 L (32.0-37.0) d/dL Assessment and Plan (1) S/p reverse total shoulder arthroplasty Current Visit: Yes Status: Acute Code(s): Z96.619 - PRESENCE OF UNSPECIFIED ARTIFICIAL SHOULDER JOINT SNOMED Code(s): 136865434 (2) Osteoarthritis of right shoulder Current Visit: Yes Status: Acute Code(s): M19.011 - PRIMARY OSTEOARTHRITIS, RIGHT SHOULDER SNOMED Code(s): 593369497178086 Plan: 1. Maintain arm sling. 2. Continue routine postoperative care and pain control. 3. Appreciate input from internal medicine. 4. Patient is awaiting rehab placement.
[2022-11-16 14:55] LABS: Appearance,Urine Clear (Clear); Bilirubin,Urine Negative (Negative); Blood,Urine Negative (Negative); Color,Urine Light Yellow; Glucose,Urine (UA) Negative (Negative); Ketones,Urine Negative (Negative); Leukocyte Esterase,Urine Negative (Negative); Nitrite,Urine Negative (Negative); PH, Urine 5.5 (5.0-8.0); Protein,Urine Negative (Negative); Specific Gravity,Urine 1.012 (1.001-1.035); Urobilinogen,Urine <2.0 mg/dL (<2.0)
[2022-11-16] MEDS ORDERED: VANCOMYCIN 1,000 MG in SODIUM CHLORIDE 0.9% 250 ML IVPB SCH (23:00)
[2022-11-17] MEDS: VANCOMYCIN 1,250 MG in SODIUM CHLORIDE 0.9% 250 ML IVPB SCH (00:28)
[2022-11-17] MEDS: HYDROmorphone 0.5 MG/0.5 ML SYRINGE IVP PRN (00:29)
[2022-11-17] MEDS: HYDROcodone/APAP 7.5-325MG 1 EACH TAB PO PRN ×3 (04:18→19:44)
[2022-11-17] MEDS: METOCLOPRAMIDE 5 MG/ML 2 ML VIAL IVP PRN (04:22)
[2022-11-17] MEDS: IBUPROFEN 400 MG TAB PO SCH ×4 (06:04→22:15)
[2022-11-17] MEDS ORDERED: CALCIUM CARBONATE 500 MG CHEWABLE PO PRN (08:03)
[2022-11-17] MEDS: ONDANSETRON 4 MG/2 ML VIAL IVP PRN (08:40)
[2022-11-17] MEDS ORDERED: PANTOPRAZOLE 40 MG TABLET PO SCH (08:45)
--- NOTE | 2022-11-17 09:03 | P.PN ---
Subjective Progress Note Date: 11/17/22 Principal diagnosis: Primary osteoarthritis right shoulder. Status post total reverse right shoulder arthroplasty. This is a 82-year-old female who is status post right reverse total shoulder arthroplasty. This is postoperative day #3 and patient is seen and evaluated at bedside today. Patient states that her pain is well controlled but is having some nausea this morning. She has been afebrile for the past 24 hours. T-max 99.7. Patient states that she is hoping for ECF upon discharge. Objective - Vital Signs Vital signs: Vital Signs Temp 98.2 F 11/17/22 07:28 Pulse 62 11/17/22 07:28 Resp 18 11/17/22 07:28 BP 108/71 11/17/22 07:28 Pulse Ox 94 L 11/17/22 08:54 FiO2 Intake & Output 11/16/22 11/17/22 11/17/22 18:59 06:59 18:59 Other: Voiding Method Toilet # Voids 2 1 - Exam This is a pleasant 82-year-old female in no acute distress. She is alert and oriented 3. Her sling is in place. She has full finger motion without difficulty or pain. Neurovascular status to the upper extremity is intact. - Labs CBC & Chem 7: 11/16/22 06:19 11/16/22 10:24 Labs: Abnormal Lab Results - Last 24 Hours (Table) 11/16/22 Range/Units 06:19 RBC 3.77 L (4.10-5.20) X 10*6/uL Hgb 11.7 L (12.0-15.0) d/dL MCV 100.3 H (80.0-97.0) FL MCHC 31.0 L (32.0-37.0) d/dL Microbiology - Last 24 Hours (Table) 11/15/22 21:53 Blood Culture - Preliminary Blood Assessment and Plan (1) Osteoarthritis of right shoulder Current Visit: Yes Status: Acute Code(s): M19.011 - PRIMARY OSTEOARTHRITIS, RIGHT SHOULDER SNOMED Code(s): 932615689973107 (2) S/p reverse total shoulder arthroplasty Current Visit: Yes Status: Acute Code(s): Z96.619 - PRESENCE OF UNSPECIFIED ARTIFICIAL SHOULDER JOINT SNOMED Code(s): 896059037 Plan: The clinical findings are discussed with the patient. She is currently being worked up for sepsis by internal medicine secondary to the fever. She may be discharged to inpatient rehab from an orthopedic standpoint. We are awaiting insurance authorization and medical clearance for discharge.
[2022-11-17] MEDS: TROSPIUM CHLORIDE 20 MG TABLET PO SCH (10:43)
[2022-11-17] MEDS: APIXABAN 5 MG TAB PO SCH ×2 (10:43→19:44)
[2022-11-17] MEDS: ASPIRIN 81 MG PO SCH (10:43)
[2022-11-17] MEDS: ASCORBIC ACID 500 MG TAB PO SCH (10:43)
[2022-11-17] MEDS: MULTIVITAMINS, THERA 1 EACH TAB PO SCH (10:44)
[2022-11-17] MEDS: NON FORMULARY DRUG (Omega-3/Dha/Epa/Fish Oil [Fish Oil 1,000 Mg Softgel] 1 EACH Capsule) PO SCH (10:49)
[2022-11-17 10:57] LABS: Basophils % (A) 0 %; Eosinophils # (A) 0.3 k/uL (0-0.7); Eosinophils % (A) 4 %; HCT 32.8 % (34.0-46.0); HGB 10.9 gm/dL (11.4-16.0); Lymphocytes # (A) 1.3 k/uL (1.0-4.8); Lymphocytes % (A) 17 %; MCH 31.8 pg (25.0-35.0); MCHC 33.4 g/dL (31.0-37.0); MCV 95.4 fL (80.0-100.0); Mean Platelet Volume 8.5; Monocytes # (A) 0.4 k/uL (0-1.0); Monocytes % (A) 5 %; Neutrophils # (A) 5.5 k/uL (1.3-7.7); Neutrophils % (A) 72 %; Platelet Count 193 k/uL (150-450); RBC 3.44 m/uL (3.80-5.40); RDW 12.7 % (11.5-15.5); WBC 7.7 k/uL (3.8-10.6)
[2022-11-17] MEDS ORDERED: VANCOMYCIN TROUGH DUE 1 EACH MISC MISCELLANE ONE (11:00)
[2022-11-17 11:37] LABS: African American GFR (CKD) >90 (>60 ml/min/1.73 sqM); Anion Gap 7 mmol/L; Blood Urea Nitrogen 9 mg/dL (7-17); Calcium 8.8 mg/dL (8.4-10.2); Carbon Dioxide 26 mmol/L (22-30); Chloride 102 mmol/L (98-107); Glucose 105 mg/dL (74-99); Non-African American GFR(CKD) 88 (>60 ml/min/1.73 sqM); Potassium 3.8 mmol/L (3.5-5.1); Sodium 135 mmol/L (137-145)
[2022-11-17] MEDS ORDERED: VANCOMYCIN 1,500 MG in SODIUM CHLORIDE 0.9% 500 ML 500 ML IVPB SCH (12:00)
--- NOTE | 2022-11-17 15:56 | P.PN ---
Progress Note - Text Progress Note Date: 11/17/22 - Chief Complaint Right shoulder surgery - History of Present Illness Pleasant 82-year-old patient who follows with Dr. Schwarz. Chronic stable medical conditions include atrial fibrillation, hard of hearing, osteomyelitis, seizure disorder, urinary incontinence. 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 Postprocedure no pain in the right shoulder right arm is numb. No nausea vomiting. Patient some family members at the bedside. No chest pain no shortness of breath. November 15: Patient laying in bed. Family the bedside. Had significant pain and nausea. A little amount. No chest pain or shortness of breath. November 16: Overnight patient started spiking fevers. I ordered urine and culture, chest x-ray blood cultures. Empirically was started on vancomycin overnight. In view of postsurgical. Patient this morning has a congested cough. Not able to bring up any sputum. Tired. Decreased appetite. Questionable infiltrate on x-ray. IV ceftriaxone and being added. November 17: Doing better. Sitting up in a chair. No further fevers. Urine came back unremarkable. Patient's cough is better. Cultures are negative to rule out. DC vancomycin. As a source of infection was pneumonia. Active Medications Acetaminophen (Acetaminophen Tab 500 Mg Tab) 500 mg PO Q6HR PRN PRN Reason: Fever and/ or Pain Last Admin: 11/15/22 21:24 Dose: 500 mg Hydrocodone Bitart/Acetaminophen (Hydrocodone/Apap 7.5-325mg 1 Each Tab) 1 each PO Q6H PRN PRN Reason: Pain Scale 1 to 5 Hydrocodone Bitart/Acetaminophen (Hydrocodone/Apap 7.5-325mg 1 Each Tab) 2 each PO Q6H PRN PRN Reason: Pain Scale 6 to 10 Last Admin: 11/17/22 12:15 Dose: 2 each Apixaban (Apixaban 5 Mg Tab) 5 mg PO BID [facility]; Protocol Last Admin: 11/17/22 10:43 Dose: 5 mg Ascorbic Acid (Ascorbic Acid 500 Mg Tab) 1,000 mg PO DAILY [facility] Last Admin: 11/17/22 10:43 Dose: 1,000 mg Aspirin (Aspirin 81 Mg) 81 mg PO DAILY [facility] Last Admin: 11/17/22 10:43 Dose: 81 mg Calcium Carbonate/Glycine (Calcium Carbonate 500 Mg Chewable) 1,000 mg PO TID PRN PRN Reason: Heartburn Hydromorphone HCl (Hydromorphone 0.5 Mg/0.5 Ml Syringe) 0.5 mg IVP Q3HR PRN PRN Reason: Pain Scale 7 to 10 Stop: 12/14/22 12:52 Last Admin: 11/17/22 00:29 Dose: 0.5 mg Hydromorphone HCl (Hydromorphone 0.5 Mg/0.5 Ml Syringe) 0.125 mg IVP Q3HR PRN PRN Reason: Pain Scale 1 to 3 Stop: 12/14/22 12:52 Hydromorphone HCl (Hydromorphone 0.5 Mg/0.5 Ml Syringe) 0.25 mg IVP Q3HR PRN PRN Reason: Pain Scale 4 to 6 Stop: 12/14/22 12:52 Ceftriaxone Sodium 1 gm/ (Sodium Chloride) 50 mls @ 100 mls/hr IVPB Q12HR [facility]; Protocol Last Admin: 11/17/22 10:46 Dose: 100 mls/hr Ibuprofen (Ibuprofen 400 Mg Tab) 400 mg PO TID [facility] Last Admin: 11/17/22 10:57 Dose: 400 mg Lorazepam (Lorazepam 2 Mg/Ml Inj) 0.5 mg IV Q4HR PRN PRN Reason: Seizures Metoclopramide HCl (Metoclopramide 5 Mg/Ml 2 Ml Vial) 5 mg IVP Q6HR PRN PRN Reason: Nausea And Vomiting Last Admin: 11/17/22 04:22 Dose: 5 mg Multivitamins (Multivitamins, Thera 1 Each Tab) 1 each PO DAILY [facility] Last Admin: 11/17/22 10:44 Dose: 1 each Non-Formulary Medication ([place]-3/Dha/Epa/Fish Oil [Fish Oil 1,000 Mg Softgel]) 1 each PO DAILY [facility] Last Admin: 11/17/22 10:49 Dose: Not Given Ondansetron HCl (Ondansetron 4 Mg/2 Ml Vial) 4 mg IVP Q8H PRN PRN Reason: Nausea And Vomiting Stop: 12/14/22 12:52 Last Admin: 11/17/22 08:40 Dose: 4 mg Pantoprazole Sodium (Pantoprazole 40 Mg Tablet) [facility] Senna/Docusate Sodium (Sennosides-Docusate Sodium 1 Each Tab) 2 each PO HS PRN PRN Reason: Constipation Stop: 12/14/22 12:52 Trospium (Trospium Chloride 20 Mg Tablet) 20 mg PO [facility] Last Admin: 11/17/22 10:43 Dose: 20 mg Past medical history to include: Atrial flutter ablation, hard of hearing, osteomyelitis, urinary incontinence, wears a pad, seizure disorder Social history: Nonsmoker. Alcohol rarely. Lives alone. Physical examination: VITAL SIGNS: 98.3, 68, 16, 129/75, 98% room air GENERAL: Sitting on a chair, appearing more comfortable, right arm in a sling, EYES: Pupils equal. Conjunctiva normal. HEENT: External appearance of nose and ears normal, oral cavity grossly normal. Decreased hearing NECK: JVD not raised; masses not palpable. HEART: First and second heart sounds are normal; no edema. LUNGS: Respiratory rate normal; improved air entry ABDOMEN: Soft, nontender, liver spleen not palpable, no masses palpable. PSYCH: Alert and oriented x3; mood and affect tired. MUSCULOSKELETAL:No Clubbing/cyanosis;muscles-grossly intact. Right arm a sling. Warm. OA INVESTIGATIONS, reviewed in the clinical context: Blood culture: Negative clue UA: Negative November 17: White count 7.7 hemoglobin 10.9 potassium 3.8 creatinine 0.55 November 16: White count 7.8 hemoglobin 11.7 platelets 160 Chest x-ray film personally reviewed by me-possible infiltrate November 15: White count 8.3 hemoglobin 11.1 platelets 176 White count 6.2 hemoglobin 13.5 platelets 211 sodium 142 potassium 4.4 BUN 19.9 creatinine 0.9 Assessment and plan: -New-onset sepsis. Secondary to pneumonia. Improving - pneumonia possible gram-negative organism.: Improving IV ceftriaxone. -Severe osteoarthritis of the right glenohumeral joint with rotator cuff insufficiency. Reverse total shoulder arthroplasty done. Right arm in a sling. Currently in some pain -Paroxysmal atrial fibrillation Eliquis -Hard of hearing, patient says hearing aids -Primary osteoarthritis Pain medications as needed Care was discussed with the patient. Questions answered. NEGIN vancomycin. Await till tomorrow should any blood cultures come back positive. Patient admitted then be discharged tomorrow. Past Medical History Past Medical History: Atrial Fibrillation, Hearing Disorder / Deafness, Osteoarthritis (OA), Seizure Disorder Additional Past Medical History / Comment(s): Urinary incontinence, wears a pad. Bilateral hearing aid use. 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 States had seizures after both hip replacements which were 2 yrs apart, last surgery 2 yrs ago, no seizures since then and none in between hip replacements. History of Any Multi-Drug Resistant Organisms: None Reported Past Surgical History: Cholecystectomy, Hysterectomy, Joint Replacement, Orthopedic Surgery Additional Past Surgical History / Comment(s): "Fallen kidney surgery", b ilateral hip replacements, bowel and bladder lift, cataract surgery, right knee meniscus repair. Past Anesthesia/Blood Transfusion Reactions: Postoperative Nausea & Vomiting ( PONV) Additional Past Anesthesia/Blood Transfusion Reaction / Comm: Hx seizures after both hip replacements which started in the Recovery Room with both. Smoking Status: Never smoker - Past Family History Mother Family Medical History: Cancer Sister(s) Family Medical History: Deep Vein Thrombosis (DVT) Medications and Allergies Home Medications Medication Instructions Recorded Confirmed Type Amoxicillin (Unknown Dose) 1 tab PO DIRECTED PRN 11/13/22 11/14/22 History Apixaban [Eliquis] 5 mg PO BID 11/13/22 11/14/22 History Ascorbic Acid [Vitamin C] 1,000 mg PO DAILY 11/13/22 11/14/22 History Aspirin [Adult Low Dose Aspirin EC] 81 mg PO DAILY 11/13/22 11/14/22 History Calcium Carbonate [Calcium] 600 mg PO DAILY 11/13/22 11/14/22 History Castillo Pill 1 tab PO DAILY 11/13/22 11/14/22 History Cholecalciferol [Vitamin D3 (125 125 mcg PO DAILY 11/13/22 11/14/22 History Mcg = 5000 Iu)] Fesoterodine Fumarate 4 mg PO QAM 11/13/22 11/14/22 History [Fesoterodine Fumarate ER] Ibuprofen [Motrin] 400 mg PO DAILY 11/13/22 11/14/22 History Ibuprofen [Motrin] 600 mg PO DAILY 11/13/22 11/14/22 History Ibuprofen [Motrin] 800 mg PO BID 11/13/22 11/14/22 History Multivitamins, Thera [Multivitamin 1 tab PO DAILY 11/13/22 11/14/22 History (formulary)] [place]-3/Dha/Epa/Fish Oil [Fish Oil 1 each PO DAILY 11/13/22 11/14/22 History 1,000 mg Softgel] Turmeric Root Extract [Turmeric] 450 mg PO DAILY 11/13/22 11/14/22 History HYDROcodone/APAP 5-325MG [[place] 1 tab PO Q6HR PRN #30 tab 11/14/22 Rx 5-325] Sennosides [Senokot] 2 tab PO DAILY PRN #60 tablet 11/14/22 Rx Allergies Allergy/AdvReac Type Severity Reaction Status Date / Time codeine Allergy Nausea & Verified 11/14/22 12:35 Vomiting tramadol Allergy Nausea Verified 11/14/22 12:02 Cold Medicines Allergy Rash/Hives Uncoded 11/14/22 12:02
[2022-11-18] MEDS: HYDROcodone/APAP 7.5-325MG 1 EACH TAB PO PRN ×3 (01:10→13:12)
[2022-11-18] MEDS: PANTOPRAZOLE 40 MG TABLET PO SCH (06:31)
[2022-11-18 06:53] LABS: African American GFR (CKD) >90 (>60 ml/min/1.73 sqM); Non-African American GFR(CKD) 88 (>60 ml/min/1.73 sqM)
[2022-11-18] MEDS: ONDANSETRON 4 MG/2 ML VIAL IVP PRN (08:13)
[2022-11-18] MEDS: NON FORMULARY DRUG (Omega-3/Dha/Epa/Fish Oil [Fish Oil 1,000 Mg Softgel] 1 EACH Capsule) PO SCH (08:18)
[2022-11-18] MEDS: IBUPROFEN 400 MG TAB PO SCH ×3 (08:18→21:00)
[2022-11-18] MEDS: ASCORBIC ACID 500 MG TAB PO SCH (08:19)
[2022-11-18] MEDS: MULTIVITAMINS, THERA 1 EACH TAB PO SCH (08:20)
[2022-11-18] MEDS: ASPIRIN 81 MG PO SCH (08:20)
[2022-11-18] MEDS: TROSPIUM CHLORIDE 20 MG TABLET PO SCH (08:20)
[2022-11-18] MEDS: APIXABAN 5 MG TAB PO SCH ×2 (08:20→21:02)
[2022-11-18] MEDS ORDERED: cefTRIAXone 1,000 MG VIAL (IM USE) IM SCH (09:00)
--- NOTE | 2022-11-18 09:33 | P.PN ---
Subjective Progress Note Date: 11/18/22 This is a 82-year-old female who is status post right reverse total shoulder arthroplasty. This is postoperative day #4 and patient is seen and evaluated at bedside today. Patient states that her pain is well controlled. Patient states that she has been nauseous and thinks this is possibly due to the IV antibiotics. Patient states that she is able to tolerate fluids. Patient denies any fever/chills, abdominal pain, shortness of breath or chest pain. Objective - Vital Signs Vital signs: Vital Signs Temp 97.5 F L 11/18/22 07:40 Pulse 62 11/18/22 07:40 Resp 16 11/18/22 07:40 BP 158/64 11/18/22 07:40 Pulse Ox 98 11/18/22 08:23 FiO2 Intake & Output 11/17/22 11/18/22 11/18/22 18:59 06:59 18:59 Intake Total 630 Balance 630 Intake: Intake, IV Titration 50 Amount cefTRIAXone 1 gm In 50 Sodium Chloride 0.9% 50 ml @ 100 mls/hr IVPB Q12HR [facility] Rx#:[id number] Oral 580 Other: # Voids 3 1 - Exam Vital signs are stable. Patient is in no acute distress and is alert and oriented 3. Dressing is clean, dry, and intact. Patient has full motion of the right wrist and hand. Sensation intact. Neurovascular status and circulatory status are intact. - Labs CBC & Chem 7: 11/17/22 10:37 11/18/22 05:42 Labs: Abnormal Lab Results - Last 24 Hours (Table) 11/17/22 11/17/22 Range/Units 10:37 10:37 RBC 3.44 L (3.80-5.40) m/uL Hgb 10.9 L (11.4-16.0) gm/dL Hct 32.8 L (34.0-46.0) % Sodium 135 L (137-145) mmol/L Glucose 105 H (74-99) mg/dL Microbiology - Last 24 Hours (Table) 11/15/22 21:53 Blood Culture - Preliminary Blood Assessment and Plan (1) S/p reverse total shoulder arthroplasty Current Visit: Yes Status: Acute Code(s): Z96.619 - PRESENCE OF UNSPECIFIED ARTIFICIAL SHOULDER JOINT SNOMED Code(s): 973907767 (2) Osteoarthritis of right shoulder Current Visit: Yes Status: Acute Code(s): M19.011 - PRIMARY OSTEOARTHRITIS, RIGHT SHOULDER SNOMED Code(s): 737362056923944 Plan: 1. Maintain arm sling. 2. Continue routine postoperative care and pain control. 3. Appreciate input from internal medicine. 4. Patient will discharge home with home care if she is denied authorization for ECF.
[2022-11-18] MEDS: METOCLOPRAMIDE 5 MG/ML 2 ML VIAL IVP PRN (10:05)
[2022-11-18] MEDS: ACETAMINOPHEN TAB 325 MG TAB PO PRN ×2 (15:12→22:32)
--- NOTE | 2022-11-18 17:49 | P.PN ---
Progress Note - Text Progress Note Date: 11/18/22 - Chief Complaint Right shoulder surgery - History of Present Illness Pleasant 82-year-old patient who follows with Dr. Schwarz. Chronic stable medical conditions include atrial fibrillation, hard of hearing, osteomyelitis, seizure disorder, urinary incontinence. 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 Postprocedure no pain in the right shoulder right arm is numb. No nausea vomiting. Patient some family members at the bedside. No chest pain no shortness of breath. November 15: Patient laying in bed. Family the bedside. Had significant pain and nausea. A little amount. No chest pain or shortness of breath. November 16: Overnight patient started spiking fevers. I ordered urine and culture, chest x-ray blood cultures. Empirically was started on vancomycin overnight. In view of postsurgical. Patient this morning has a congested cough. Not able to bring up any sputum. Tired. Decreased appetite. Questionable infiltrate on x-ray. IV ceftriaxone and being added. November 17: Doing better. Sitting up in a chair. No further fevers. Urine came back unremarkable. Patient's cough is better. Cultures are negative to rule out. DC vancomycin. As a source of infection was pneumonia. November 18: Discussed with the patient out of the bedside. Nausea has been an issue. Discussed about getting back on [place]. She did take one tablet is a posterior 2 tablets. Also prescribed full-strength Tylenol. We'll try heating pad to. Yesterday symptoms of daily resolve. We will change to Omnicef. We'll see how patient is an extra 24 hours. She has help at home and may possibly think of going home tomorrow. Active Medications Acetaminophen (Acetaminophen Tab 325 Mg Tab) 650 mg PO Q6HR PRN PRN Reason: Fever and/ or Pain Last Admin: 11/18/22 15:12 Dose: 650 mg Hydrocodone Bitart/Acetaminophen (Hydrocodone/Apap 7.5-325mg 1 Each Tab) 1 each PO Q6H PRN PRN Reason: Pain Scale 1 to 5 Last Admin: 11/18/22 13:12 Dose: 1 each Hydrocodone Bitart/Acetaminophen (Hydrocodone/Apap 7.5-325mg 1 Each Tab) 2 each PO Q6H PRN PRN Reason: Pain Scale 6 to 10 Last Admin: 11/18/22 06:31 Dose: 2 each Apixaban (Apixaban 5 Mg Tab) 5 mg PO BID [facility]; Protocol Last Admin: 11/18/22 08:20 Dose: 5 mg Ascorbic Acid (Ascorbic Acid 500 Mg Tab) 1,000 mg PO DAILY [facility] Last Admin: 11/18/22 08:19 Dose: 1,000 mg Aspirin (Aspirin 81 Mg) 81 mg PO DAILY [facility] Last Admin: 11/18/22 08:20 Dose: 81 mg Calcium Carbonate/Glycine (Calcium Carbonate 500 Mg Chewable) 1,000 mg PO TID PRN PRN Reason: Heartburn Hydromorphone HCl (Hydromorphone 0.5 Mg/0.5 Ml Syringe) 0.5 mg IVP Q3HR PRN PRN Reason: Pain Scale 7 to 10 Stop: 12/14/22 12:52 Last Admin: 11/17/22 00:29 Dose: 0.5 mg Hydromorphone HCl (Hydromorphone 0.5 Mg/0.5 Ml Syringe) 0.125 mg IVP Q3HR PRN PRN Reason: Pain Scale 1 to 3 Stop: 12/14/22 12:52 Hydromorphone HCl (Hydromorphone 0.5 Mg/0.5 Ml Syringe) 0.25 mg IVP Q3HR PRN PRN Reason: Pain Scale 4 to 6 Stop: 12/14/22 12:52 Ibuprofen (Ibuprofen 400 Mg Tab) 400 mg PO TID [facility] Last Admin: 11/18/22 16:04 Dose: 400 mg Lorazepam (Lorazepam 2 Mg/Ml Inj) 0.5 mg IV Q4HR PRN PRN Reason: Seizures Metoclopramide HCl (Metoclopramide 5 Mg/Ml 2 Ml Vial) 5 mg IVP Q6HR PRN PRN Reason: Nausea And Vomiting Last Admin: 11/18/22 10:05 Dose: 5 mg Multivitamins (Multivitamins, Thera 1 Each Tab) 1 each PO DAILY [facility] Last Admin: 11/18/22 08:20 Dose: 1 each Non-Formulary Medication ([place]-3/Dha/Epa/Fish Oil [Fish Oil 1,000 Mg Softgel]) 1 each PO DAILY [facility] Last Admin: 11/18/22 08:18 Dose: Not Given Ondansetron HCl (Ondansetron 4 Mg/2 Ml Vial) 4 mg IVP Q8H PRN PRN Reason: Nausea And Vomiting Stop: 12/14/22 12:52 Last Admin: 11/18/22 08:13 Dose: 4 mg Pantoprazole Sodium (Pantoprazole 40 Mg Tablet) 40 mg PO AC-BRKFST [facility] Last Admin: 11/18/22 06:31 Dose: 40 mg Senna/Docusate Sodium (Sennosides-Docusate Sodium 1 Each Tab) 2 each PO HS PRN PRN Reason: Constipation Stop: 12/14/22 12:52 Trospium (Trospium Chloride 20 Mg Tablet) 20 mg PO QAM [facility] Last Admin: 11/18/22 08:20 Dose: 20 mg Past medical history to include: Atrial flutter ablation, hard of hearing, osteomyelitis, urinary incontinence, wears a pad, seizure disorder Social history: Nonsmoker. Alcohol rarely. Lives alone. Physical examination: VITAL SIGNS: 97.8, 89, 19, 129/52, 92% room air GENERAL: Reclining in bed, appears comfortable EYES: Pupils equal. Conjunctiva normal. HEENT: External appearance of nose and ears normal, oral cavity grossly normal. Decreased hearing NECK: JVD not raised; masses not palpable. HEART: First and second heart sounds are normal; no edema. LUNGS: Respiratory rate normal; improved air entry ABDOMEN: Soft, nontender, liver spleen not palpable, no masses palpable. PSYCH: Alert and oriented x3; mood and affect tired. MUSCULOSKELETAL:No Clubbing/cyanosis;muscles-grossly intact. Right arm a sling. Warm. OA INVESTIGATIONS, reviewed in the clinical context: November 18: Procalcitonin 0.08 Blood culture: Negative clue UA: Negative November 17: White count 7.7 hemoglobin 10.9 potassium 3.8 creatinine 0.55 November 16: White count 7.8 hemoglobin 11.7 platelets 160 Chest x-ray film personally reviewed by me-possible infiltrate November 15: White count 8.3 hemoglobin 11.1 platelets 176 White count 6.2 hemoglobin 13.5 platelets 211 sodium 142 potassium 4.4 BUN 19.9 creatinine 0.9 Assessment and plan: -New-onset sepsis. Secondary to pneumonia. Improving - pneumonia possible gram-negative organism.: Much improved IV ceftriaxone. 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 Reverse total shoulder arthroplasty done. Right arm in a sling. Currently in some pain -Paroxysmal atrial fibrillation Eliquis -Hard of hearing, patient says hearing aids -Primary osteoarthritis Pain medications as needed Which better. Discussed. Pain medication discussed. Antibiotic discussed. Hopefully discharge home tomorrow. Past Medical History Past Medical History: Atrial Fibrillation, Hearing Disorder / Deafness, Osteoarthritis (OA), Seizure Disorder Additional Past Medical History / Comment(s): Urinary incontinence, wears a pad. Bilateral hearing aid use. 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 States had seizures after both hip replacements which were 2 yrs apart, last surgery 2 yrs ago, no seizures since then and none in between hip replacements. History of Any Multi-Drug Resistant Organisms: None Reported Past Surgical History: Cholecystectomy, Hysterectomy, Joint Replacement, Orthopedic Surgery Additional Past Surgical History / Comment(s): "Fallen kidney surgery", bilateral hip replacements, bowel and bladder lift, cataract surgery, right knee meniscus repair. Past Anesthesia/Blood Transfusion Reactions: Postoperative Nausea & Vomiting (PONV) Additional Past Anesthesia/Blood Transfusion Reaction / Comm: Hx seizures after both hip replacements which started in the Recovery Room with both. Smoking Status: Never smoker - Past Family History Mother Family Medical History: Cancer Sister(s) Family Medical History: Deep Vein Thrombosis (DVT) Medications and Allergies Home Medications Medication Instructions Recorded Confirmed Type Amoxicillin (Unknown Dose) 1 tab PO DIRECTED PRN 11/13/22 11/14/22 History Apixaban [Eliquis] 5 mg PO BID 11/13/22 11/14/22 History Ascorbic Acid [Vitamin C] 1,000 mg PO DAILY 11/13/22 11/14/22 History Aspirin [Adult Low Dose Aspirin EC] 81 mg PO DAILY 11/13/22 11/14/22 History Calcium Carbonate [Calcium] 600 mg PO DAILY 11/13/22 11/14/22 History Castillo Pill 1 tab PO DAILY 11/13/22 11/14/22 History Cholecalciferol [Vitamin D3 (125 125 mcg PO DAILY 11/13/22 11/14/22 History Mcg = 5000 Iu)] Fesoterodine Fumarate 4 mg PO QAM 11/13/22 11/14/22 History [Fesoterodine Fumarate ER] Ibuprofen [Motrin] 400 mg PO DAILY 11/13/22 11/14/22 History Ibuprofen [Motrin] 600 mg PO DAILY 11/13/22 11/14/22 History Ibuprofen [Motrin] 800 mg PO BID 11/13/22 11/14/22 History Multivitamins, Thera [Multivitamin 1 tab PO DAILY 11/13/22 11/14/22 History (formulary)] [place]-3/Dha/Epa/Fish Oil [Fish Oil 1 each PO DAILY 11/13/22 11/14/22 History 1,000 mg Softgel] Turmeric Root Extract [Turmeric] 450 mg PO DAILY 11/13/22 11/14/22 History HYDROcodone/APAP 5-325MG [[place] 1 tab PO Q6HR PRN #30 tab 11/14/22 Rx 5-325] Sennosides [Senokot] 2 tab PO DAILY PRN #60 tablet 11/14/22 Rx Allergies Allergy/AdvReac Type Severity Reaction Status Date / Time codeine Allergy Nausea & Verified 11/14/22 12:35 Vomiting tramadol Allergy Nausea Verified 11/14/22 12:02 Cold Medicines Allergy Rash/Hives Uncoded 11/14/22 12:02
[2022-11-19 05:22] LABS: African American GFR (CKD) >90 (>60 ml/min/1.73 sqM); Non-African American GFR(CKD) 87 (>60 ml/min/1.73 sqM)
[2022-11-19] MEDS: CEFDINIR 300 MG CAP PO SCH ×2 (05:42→08:15)
[2022-11-19] MEDS: PANTOPRAZOLE 40 MG TABLET PO SCH (06:47)
[2022-11-19] MEDS: ASCORBIC ACID 500 MG TAB PO SCH (08:14)
[2022-11-19] MEDS: NON FORMULARY DRUG (Omega-3/Dha/Epa/Fish Oil [Fish Oil 1,000 Mg Softgel] 1 EACH Capsule) PO SCH (08:14)
[2022-11-19] MEDS: MULTIVITAMINS, THERA 1 EACH TAB PO SCH (08:14)
[2022-11-19] MEDS: ACETAMINOPHEN TAB 325 MG TAB PO PRN ×2 (08:14→15:31)
[2022-11-19] MEDS: APIXABAN 5 MG TAB PO SCH (08:15)
[2022-11-19] MEDS: TROSPIUM CHLORIDE 20 MG TABLET PO SCH (08:15)
[2022-11-19] MEDS: ASPIRIN 81 MG PO SCH (08:15)
[2022-11-19] MEDS: IBUPROFEN 400 MG TAB PO SCH (08:15)
[2022-11-19 08:16] VITALS: BP 126/63; PULSE 64; RESP 19; TEMP 98.7
--- NOTE | 2022-11-19 09:43 | P.DS ---
Providers Date of admission: 11/15/22 08:44 Expected date of discharge: 11/19/22 Attending physician: Lj Kearns Consults: 11/14/22 12:51 Consult Physician Routine Consulting Provider: Milton Fisher Consult Reason/Comments: medical management Do you want consulting provider notified?: Yes Primary care physician: Genia Malin - Discharge Diagnosis(es) (1) S/p reverse total shoulder arthroplasty Current Visit: Yes Status: Acute (2) Osteoarthritis of right shoulder Current Visit: Yes Status: Acute Hospital Course: This is a 82-year-old male with known history of severe osteoarthritis of the right glenohumeral joint with rotator cuff insufficiency. The patient presented for evaluation as an outpatient. After discussion and consideration patient elects to proceed with reverse total shoulder arthroplasty. The patient is seen preoperatively by Dr. Kearns and medically cleared for surgery by their primary care physician and cardiology. Patient is admitted to [facility] on 11/14/2022 for reverse total shoulder arthroplasty. The procedure is performed without complication or sequelae. The patient is doing well postoperatively. Labs and vital signs are stable on day of discharge. Patient had a postoperative seizure and patient reports a history of pain induced seizures. Patient was treated with IV antibiotics for potential pneumonia per internal medicine. Blood cultures have been negative during this admission. Patient is afebrile and well-appearing on day of discharge. On day of discharge the patient's shoulder incision is healing well. There is minimal erythema. There is no drainage noted at this time. There is minimal soft tissue swelling to the shoulder. Patient has full hand and wrist motion without difficulty or pain. Neurovascular status to the right upper extremity is intact. Patient is discharged home in good condition. Please see med rec for accurate list of home medications. Plan - Discharge Summary Discharge Rx Participant: No New Discharge Prescriptions: New HYDROcodone/APAP 7.5-325MG [[place] 7.5-325] 1 - 2 tab PO Q6H PRN #32 tab PRN Reason: Pain Pantoprazole [Protonix] 40 mg PO DAILY #30 tab Sennosides [Senokot] 2 tab PO DAILY PRN #60 tablet PRN Reason: Constipation No Action Multivitamins, Thera [Multivitamin (formulary)] 1 tab PO DAILY Turmeric Root Extract [Turmeric] 450 mg PO DAILY Aspirin [Adult Low Dose Aspirin EC] 81 mg PO DAILY [place] Pill 1 tab PO DAILY Ibuprofen [Motrin] 600 mg PO DAILY Ibuprofen [Motrin] 800 mg PO BID Cholecalciferol [Vitamin D3 (125 Mcg = 5000 Iu)] 125 mcg PO DAILY [place]-3/Dha/Epa/Fish Oil [Fish Oil 1,000 mg Softgel] 1 each PO DAILY Fesoterodine Fumarate [Fesoterodine Fumarate ER] 4 mg PO QAM Calcium Carbonate [Calcium] 600 mg PO DAILY Ascorbic Acid [Vitamin C] 1,000 mg PO DAILY Amoxicillin (Unknown Dose) 1 tab PO DIRECTED PRN PRN Reason: Prior to dental work. Ibuprofen [Motrin] 400 mg PO DAILY Apixaban [Eliquis] 5 mg PO BID Discharge Medication List Amoxicillin (Unknown Dose) 1 tab PO DIRECTED PRN 11/13/22 [History] Apixaban [Eliquis] 5 mg PO BID 11/13/22 [History] Ascorbic Acid [Vitamin C] 1,000 mg PO DAILY 11/13/22 [History] Aspirin [Adult Low Dose Aspirin EC] 81 mg PO DAILY 11/13/22 [History] Calcium Carbonate [Calcium] 600 mg PO DAILY 11/13/22 [History] Castillo Pill 1 tab PO DAILY 11/13/22 [History] Cholecalciferol [Vitamin D3 (125 Mcg = 5000 Iu)] 125 mcg PO DAILY 11/13/22 [History] Fesoterodine Fumarate [Fesoterodine Fumarate ER] 4 mg PO QAM 11/13/22 [History] Ibuprofen [Motrin] 400 mg PO DAILY 11/13/22 [History] Ibuprofen [Motrin] 600 mg PO DAILY 11/13/22 [History] Ibuprofen [Motrin] 800 mg PO BID 11/13/22 [History] Multivitamins, Thera [Multivitamin (formulary)] 1 tab PO DAILY 11/13/22 [History] [place]-3/Dha/Epa/Fish Oil [Fish Oil 1,000 mg Softgel] 1 each PO DAILY 11/13/22 [History] Turmeric Root Extract [Turmeric] 450 mg PO DAILY 11/13/22 [History] Sennosides [Senokot] 2 tab PO DAILY PRN #60 tablet 11/14/22 [Rx] HYDROcodone/APAP 7.5-325MG [[place] 7.5-325] 1 - 2 tab PO Q6H PRN #32 tab 11/15/22 [Rx] Pantoprazole [Protonix] 40 mg PO DAILY #30 tab 11/17/22 [Rx] Follow up Appointment(s)/Referral(s): [facility] [NON-STAFF] - 1-2 Days ([facility] will call you to schedule your in home nursing, physical therapy, and occupational therapy visits. ) Lj Kearns DO [Doctor of Osteopathic Medicine] - 11/27/22 2:00 pm Activity/Diet/Wound Care/Special Instructions: *If patient is denied for [facility], [facility] will follow patient once home. Maintain sling for comfort. Dressing may be removed by home care nurse or by patient in 7 days. Then change dressing twice daily until follow up. May shower with initial dressing intact and after removal. If dressing become saturated, please remove. Please follow-up with [facility] and call with any questions or concerns, . Discharge Disposition: HOME WITH HOME HEALTH SERVICES
--- NOTE | 2022-11-19 13:50 | P.PN ---
Progress Note - Text Progress Note Date: 11/19/22 - Chief Complaint Right shoulder surgery - History of Present Illness Pleasant 82-year-old patient who follows with Dr. Schwarz. Chronic stable medical conditions include atrial fibrillation, hard of hearing, osteomyelitis, seizure disorder, urinary incontinence. 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 Postprocedure no pain in the right shoulder right arm is numb. No nausea vomiting. Patient some family members at the bedside. No chest pain no shortness of breath. November 15: Patient laying in bed. Family the bedside. Had significant pain and nausea. A little amount. No chest pain or shortness of breath. November 16: Overnight patient started spiking fevers. I ordered urine and culture, chest x-ray blood cultures. Empirically was started on vancomycin overnight. In view of postsurgical. Patient this morning has a congested cough. Not able to bring up any sputum. Tired. Decreased appetite. Questionable infiltrate on x-ray. IV ceftriaxone and being added. November 17: Doing better. Sitting up in a chair. No further fevers. Urine came back unremarkable. Patient's cough is better. Cultures are negative to rule out. DC vancomycin. As a source of infection was pneumonia. November 18: Discussed with the patient out of the bedside. Nausea has been an issue. Discussed about getting back on [place]. She did take one tablet is a posterior 2 tablets. Also prescribed full-strength Tylenol. We'll try heating pad to. Yesterday symptoms of daily resolve. We will change to Omnicef. We'll see how patient is an extra 24 hours. She has help at home and may possibly think of going home tomorrow. November 19: Patient's pain well controlled with 2 tablets of Tylenol. No further nausea. Eating better. No more Omnicef. Questions answered. Disc ussed with patient and nurse. Going home with support. Active Medications Acetaminophen (Acetaminophen Tab 325 Mg Tab) 650 mg PO Q6HR PRN PRN Reason: Fever and/ or Pain Last Admin: 11/19/22 08:14 Dose: 650 mg Hydrocodone Bitart/Acetaminophen (Hydrocodone/Apap 7.5-325mg 1 Each Tab) 1 each PO Q6H PRN PRN Reason: Pain Scale 1 to 5 Last Admin: 11/18/22 13:12 Dose: 1 each Hydrocodone Bitart/Acetaminophen (Hydrocodone/Apap 7.5-325mg 1 Each Tab) 2 each PO Q6H PRN PRN Reason: Pain Scale 6 to 10 Last Admin: 11/18/22 06:31 Dose: 2 each Apixaban (Apixaban 5 Mg Tab) 5 mg PO BID [facility]; Protocol Last Admin: 11/19/22 08:15 Dose: 5 mg Ascorbic Acid (Ascorbic Acid 500 Mg Tab) 1,000 mg PO DAILY [facility] Last Admin: 11/19/22 08:14 Dose: 1,000 mg Aspirin (Aspirin 81 Mg) 81 mg PO DAILY [facility] Last Admin: 11/19/22 08:15 Dose: 81 mg Calcium Carbonate/Glycine (Calcium Carbonate 500 Mg Chewable) 1,000 mg PO TID PRN PRN Reason: Heartburn Hydromorphone HCl (Hydromorphone 0.5 Mg/0.5 Ml Syringe) 0.5 mg IVP Q3HR PRN PRN Reason: Pain Scale 7 to 10 Stop: 12/14/22 12:52 Last Admin: 11/17/22 00:29 Dose: 0.5 mg Hydromorphone HCl (Hydromorphone 0.5 Mg/0.5 Ml Syringe) 0.125 mg IVP Q3HR PRN PRN Reason: Pain Scale 1 to 3 Stop: 12/14/22 12:52 Hydromorphone HCl (Hydromorphone 0.5 Mg/0.5 Ml Syringe) 0.25 mg IVP Q3HR PRN PRN Reason: Pain Scale 4 to 6 Stop: 12/14/22 12:52 Ibuprofen (Ibuprofen 400 Mg Tab) 400 mg PO TID [facility] Last Admin: 11/19/22 08:15 Dose: 400 mg Lorazepam (Lorazepam 2 Mg/Ml Inj) 0.5 mg IV Q4HR PRN PRN Reason: Seizures Metoclopramide HCl (Metoclopramide 5 Mg/Ml 2 Ml Vial) 5 mg IVP Q6HR PRN PRN Reason: Nausea And Vomiting Last Admin: 11/18/22 10:05 Dose: 5 mg Multivitamins (Multivitamins, Thera 1 Each Tab) 1 each PO DAILY [facility] Last Admin: 11/19/22 08:14 Dose: 1 each Non-Formulary Medication ([place]-3/Dha/Epa/Fish Oil [Fish Oil 1,000 Mg Softgel]) 1 each PO DAILY [facility] Last Admin: 11/19/22 08:14 Dose: Not Given Ondansetron HCl (Ondansetron 4 Mg/2 Ml Vial) 4 mg IVP Q8H PRN PRN Reason: Nausea And Vomiting Stop: 12/14/22 12:52 Last Admin: 11/18/22 08:13 Dose: 4 mg Pantoprazole Sodium (Pantoprazole 40 Mg Tablet) 40 mg PO AC-BRKFST [facility] Last Admin: 11/19/22 06:47 Dose: 40 mg Senna/Docusate Sodium (Sennosides-Docusate Sodium 1 Each Tab) 2 each PO HS PRN PRN Reason: Constipation Stop: 12/14/22 12:52 Trospium (Trospium Chloride 20 Mg Tablet) 20 mg PO QAM [facility] Last Admin: 11/19/22 08:15 Dose: 20 mg Past medical history to include: Atrial flutter ablation, hard of hearing, osteomyelitis, urinary incontinence, wears a pad, seizure disorder Social history: Nonsmoker. Alcohol rarely. Lives alone. Physical examination: VITAL SIGNS: 98.7, 64, 19, 126/73, 97% room air GENERAL: Reclining in bed, appears comfortable EYES: Pupils equal. Conjunctiva normal. HEENT: External appearance of nose and ears normal, oral cavity grossly normal. Decreased hearing NECK: JVD not raised; masses not palpable. HEART: First and second heart sounds are normal; no edema. LUNGS: Respiratory rate normal; improved air entry ABDOMEN: Soft, nontender, liver spleen not palpable, no masses palpable. PSYCH: Alert and oriented x3; mood and affect tired. MUSCULOSKELETAL:No Clubbing/cyanosis;muscles-grossly intact. Right arm a sling. Warm. OA INVESTIGATIONS, reviewed in the clinical context: November 18: Procalcitonin 0.08 Blood culture: Negative clue UA: Negative November 17: White count 7.7 hemoglobin 10.9 potassium 3.8 creatinine 0.55 November 16: White count 7.8 hemoglobin 11.7 platelets 160 Chest x-ray film personally reviewed by me-possible infiltrate November 15: White count 8.3 hemoglobin 11.1 platelets 176 White count 6.2 hemoglobin 13.5 platelets 211 sodium 142 potassium 4.4 BUN 19.9 creatinine 0.9 Assessment and plan: -New-onset sepsis. Secondary to pneumonia. Improved - pneumonia possible gram-negative organism, could be viral.: Corrected IV ceftriaxone. government auditor to Omnicef No further antibiotic and discharge -Severe osteoarthritis of the right glenohumeral joint with rotator cuff insufficiency. Reverse total shoulder arthroplasty done. Right arm in a sling. -Paroxysmal atrial fibrillation Eliquis -Hard of hearing, patient says hearing aids -Primary osteoarthritis Pain medications as needed Discussed with patient. Doing well. Questions answered. Follow-up with PCP. Past Medical History Past Medical History: Atrial Fibrillation, Hearing Disorder / Deafness, Osteoarthritis (OA), Seizure Disorder Additional Past Medical History / Comment(s): Urinary incontinence, wears a pad. Bilateral hearing aid use. Hx being spurred by gray on hand, got infected, was hospitalized and had seizures, has had seizures once in a while since then. States had seizures after both hip replacements which were 2 yrs apart, last surgery 2 yrs ago, no seizures since then and none in between hip replacements. History of Any Multi-Drug Resistant Organisms: None Reported Past Surgical History: Cholecystectomy, Hysterectomy, Joint Replacement, Orthopedic Surgery Additional Past Surgical History / Comment(s): "Fallen kidney surgery", bilateral hip replacements, bowel and bladder lift, cataract surgery, right knee meniscus repair. Past Anesthesia/Blood Transfusion Reactions: Postoperative Nausea & Vomiting (PONV) Additional Past Anesthesia/Blood Transfusion Reaction / Comm: Hx seizures after both hip replacements which started in the Recovery Room with both. Smoking Status: Never smoker - Past Family History Mother Family Medical History: Cancer Sister(s) Family Medical History: Deep Vein Thrombosis (DVT) Medications and Allergies Home Medications Medication Instructions Recorded Confirmed Type Amoxicillin (Unknown Dose) 1 tab PO DIRECTED PRN 11/13/22 11/14/22 History Apixaban [Eliquis] 5 mg PO BID 11/13/22 11/14/22 History Ascorbic Acid [Vitamin C] 1,000 mg PO DAILY 11/13/22 11/14/22 History Aspirin [Adult Low Dose Aspirin EC] 81 mg PO DAILY 11/13/22 11/14/22 History Calcium Carbonate [Calcium] 600 mg PO DAILY 11/13/22 11/14/22 History Castillo Pill 1 tab PO DAILY 11/13/22 11/14/22 History Cholecalciferol [Vitamin D3 (125 125 mcg PO DAILY 11/13/22 11/14/22 History Mcg = 5000 Iu)] Fesoterodine Fumarate 4 mg PO QAM 11/13/22 11/14/22 History [Fesoterodine Fumarate ER] Ibuprofen [Motrin] 400 mg PO DAILY 11/13/22 11/14/22 History Ibuprofen [Motrin] 600 mg PO DAILY 11/13/22 11/14/22 History Ibuprofen [Motrin] 800 mg PO BID 11/13/22 11/14/22 History Multivitamins, Thera [Multivitamin 1 tab PO DAILY 11/13/22 11/14/22 History (formulary)] [place]-3/Dha/Epa/Fish Oil [Fish Oil 1 each PO DAILY 11/13/22 11/14/22 History 1,000 mg Softgel] Turmeric Root Extract [Turmeric] 450 mg PO DAILY 11/13/22 11/14/22 History HYDROcodone/APAP 5-325MG [[place] 1 tab PO Q6HR PRN #30 tab 11/14/22 Rx 5-325] Sennosides [Senokot] 2 tab PO DAILY PRN #60 tablet 11/14/22 Rx Allergies Allergy/AdvReac Type Severity Reaction Status Date / Time codeine Allergy Nausea & Verified 11/14/22 12:35 Vomiting tramadol Allergy Nausea Verified 11/14/22 12:02 Cold Medicines Allergy Rash/Hives Uncoded 11/14/22 12:02
== END 2022-11-19 16:08 | disposition home health service (06) | DRG 483 ==
LOC: OR 11:39 → 4SSUR 14:36 → OR 11-15 08:44 → OBSVTOIN 11-15 08:44
PROVIDERS: ADMIT Orthopaedic Surgery; ATTEND Orthopaedic Surgery
PROC: 0RRJ00Z Replacement of Right Shoulder Joint with Reverse Ball and Socket Synthetic Substitute, Open Approach (ICD-10-PCS; principal; 2022-11-14 13:25)
DX: M19.011 Primary osteoarthritis, right shoulder (principal); A41.50 Gram-negative sepsis, unspecified; J15.6 Pneumonia due to other Gram-negative bacteria; I48.92 Unspecified atrial flutter; M75.101 Unspecified rotator cuff tear or rupture of right shoulder, not specified as traumatic; G40.909 Epilepsy, unspecified, not intractable, without status epilepticus; M85.80 Other specified disorders of bone density and structure, unspecified site; H91.90 Unspecified hearing loss, unspecified ear; I48.0 Paroxysmal atrial fibrillation; K59.00 Constipation, unspecified; R32 Unspecified urinary incontinence; Z79.01 Long term (current) use of anticoagulants; Z79.82 Long term (current) use of aspirin; Z96.643 Presence of artificial hip joint, bilateral; Z97.4 Presence of external hearing-aid; Z88.5 Allergy status to narcotic agent; Z28.21 Immunization not carried out because of patient refusal; Z79.1 Long term (current) use of non-steroidal anti-inflammatories (NSAID)
CPT/HCPCS: 64415; 71045; 80048; 80202; 81003; 82565; 84145; 85025; 85027; 87040; 94760